=== PATIENT | male | born 1960 | race Caucasian/White ===

== ENCOUNTER 2019-08-01 04:21 | Inpatient (IN) | payer OTHER ==
[~2019-08-01] VITALS: Ht 172.7 cm; Wt 91.6 kg
[2019-08-01 04:23] VITALS: BP_SYST 149
[2019-08-01] MEDS ORDERED: NACL 0.9% 2,700 ML IV ONE (05:06)
[2019-08-01 05:18] LABS: BASOPHILS # (AUTO) 0.1 K/uL (0.0-0.2); BASOPHILS % (AUTO) 0.7 % (0.0-2.0); EOSINOPHILS # (AUTO) 0.6 K/uL (0.0-0.4); EOSINOPHILS % (AUTO) 7.9 % (0.0-4.0); HEMOGLOBIN 14.3 g/dL (14.0-18.0); LYMPHOCYTES # (AUTO) 1.3 K/uL (1.0-5.5); LYMPHOCYTES % (AUTO) 17.3 % (20.5-51.5); MEAN CORPUSCULAR HEMOGLOBIN 29 pg (27-31); MEAN CORPUSCULAR HGB CONC 34 % (32-36); MEAN CORPUSCULAR VOLUME 85 fL (79.0-98.0); MONOCYTES # (AUTO) 0.6 K/uL (0.0-1.0); MONOCYTES % (AUTO) 7.6 % (1.7-9.3); NEUTROPHILS # (AUTO) 4.9 K/uL (1.8-7.7); NEUTROPHILS % (AUTO) 66.5 % (40.0-70.0); PLATELET COUNT (AUTO) 148 K/uL (130-430); RED BLOOD CELL COUNT(AUTO) 4.93 MIL/uL (4.2-6.2); WHITE BLOOD COUNT (AUTO) 7.3 K/uL (4.8-10.8)
[2019-08-01 05:31] LABS: CALCIUM 8.6 mg/dL (8.4-11.0); CREATININE 0.85 mg/dL (0.55-1.30)
[2019-08-01 05:37] LABS: ALBUMIN 3.6 g/dL (3.4-4.8); TOTAL BILIRUBIN 0.8 mg/dL (0.0-1.0)
[2019-08-01] MEDS ORDERED: CARV25TA55 PO (06:35)
[2019-08-01] MEDS ORDERED: LIP80 PO (06:35)
[2019-08-01] MEDS ORDERED: LISI40TA4 PO (06:35)
[2019-08-01] MEDS ORDERED: VITD2000 PO (06:35)
[2019-08-01] MEDS ORDERED: ASPI-862 PO (06:35)
[2019-08-01] MEDS ORDERED: TICA60TA PO (06:35)
[2019-08-01] MEDS ORDERED: SPIR25TA6 PO (06:35)
[2019-08-01] MEDS ORDERED: ALBUTEROL SULFATE 0.083% 2.5 MG/3 ML VIAL.NEB INH ONE (06:45)
[2019-08-01] MEDS ORDERED: VANCOMYCIN HCL 1,000 MG in NS 250 ML IV ONE (06:45)
[2019-08-01] MEDS ORDERED: IPRATROPIUM BROM 0.5 MG/2.5 ML VIAL.NEB (ATROVENT) INH ONE (06:45)
[2019-08-01] MEDS ORDERED: ACETAMINOPHEN 325 MG TABLET PO PRN ×2 (07:45→09:00)
[2019-08-01] MEDS ORDERED: VANCOMYCIN HCL 1000 MG/VIAL IV ONE (07:59)
[2019-08-01] MEDS ORDERED: TICAGRELOR 60 MG PO SCH (09:00)
[2019-08-01] MEDS ORDERED: HYDROcodone/ACETAMIN 5-325 MG TAB (NORCO/ VICODIN) PO PRN (09:00)
[2019-08-01] MEDS ORDERED: ONDANSETRON HCL 4 MG/2 ML VIAL IVP PRN (09:00)
[2019-08-01] MEDS ORDERED: LORazepam 2 MG/ML VIAL IVP PRN (09:00)
[2019-08-01 09:07] LABS: BILIRUBIN,URINE NEGATIVE (NEGATIVE); CLARITY/URINE CLEAR (CLEAR); COLOR,URINE YELLOW (YELLOW); GLUCOSE,URINE NEGATIVE (NEGATIVE); KETONES,URINE NEGATIVE (NEGATIVE); LEUKOCYTE ESTERASE ,URINE NEGATIVE (NEGATIVE); NITRITE, URINE NEGATIVE (NEGATIVE); PROTEIN URINE NEGATIVE (NEGATIVE); UROBILINOGEN,URINE 0.2 (0.2-1.0)
[2019-08-01 09:09] LABS: BLOOD, URINE TRACE (NEGATIVE)
[2019-08-01 09:10] VITALS: BP_SYST 165
[2019-08-01 09:15] LABS: BACTERIA,URINE RARE /HPF (None Seen); RBC,URINE 0-3 /HPF (0-3); WBC,URINE 0-3 /HPF (0-3)
[2019-08-01] MEDS: P-EPHED SUL/LORATADINE TAB.SR.12H PO SCH ×2 (09:21→21:50)
[2019-08-01 09:31] VITALS: BP_SYST 165
[2019-08-01] MEDS: LISINOPRIL 20 MG TABLET PO SCH (10:09)
[2019-08-01] MEDS: CHOLECALCIFEROL (VITAMIN D3) 2,000 UNIT TABLET PO SCH (10:09)
[2019-08-01] MEDS: ASPIRIN 325 MG TABLET (ECOTRIN) PO SCH (10:10)
[2019-08-01] MEDS: SPIRONOLACTONE 25 MG TABLET (ALDACTONE) PO SCH (10:10)
[2019-08-01] MEDS: ATORVASTATIN 20 MG TABLET PO SCH (10:19)
[2019-08-01 12:36] VITALS: BP_SYST 145
[2019-08-01] MEDS ORDERED: IOHEXOL 350 mgI/mL, 150 ML INFUS..BTL IV ONE (12:53)
[2019-08-01] MEDS ORDERED: NORMAL SALINE 5 ML DISP.SYRIN IVF SCH (14:00)
[2019-08-01] MEDS ORDERED: AZITHROMYCIN 250 MG TABLET PO SCH (15:00)
[2019-08-01] MEDS ORDERED: cefTRIAXone 1 GM in D5W 50 ML IV SCH (16:00)
[2019-08-01] MEDS: NORMAL SALINE 5 ML DISP.SYRIN IVF SCH ×2 (16:14→21:58)
[2019-08-01] MEDS ORDERED: AZITHROMYCIN 250 MG TABLET PO ONE (16:15)
[2019-08-01] MEDS: HYDROcodone/ACETAMIN 10-325 MG TAB PO PRN ×2 (16:15→21:56)
[2019-08-01 16:27] VITALS: BP_SYST 146
[2019-08-01] MEDS: CARVEDILOL 25 MG TABLET (COREG) PO SCH (17:53)
[2019-08-01 20:00] VITALS: BP_SYST 132
[2019-08-02] VITALS: BP_SYST 135
[2019-08-02] MEDS: NORMAL SALINE 5 ML DISP.SYRIN IVF SCH (07:02)
[2019-08-02 07:46] LABS: BASOPHILS % (AUTO) 0.6 % (0.0-2.0); EOSINOPHILS # (AUTO) 0.3 K/uL (0.0-0.4); EOSINOPHILS % (AUTO) 5.3 % (0.0-4.0); HEMATOCRIT 37.7 % (36-54); HEMOGLOBIN 12.8 g/dL (14.0-18.0); LYMPHOCYTES # (AUTO) 2.1 K/uL (1.0-5.5); MEAN CORPUSCULAR HEMOGLOBIN 29 pg (27-31); MEAN CORPUSCULAR HGB CONC 34 % (32-36); MEAN CORPUSCULAR VOLUME 85 fL (79.0-98.0); MONOCYTES # (AUTO) 0.7 K/uL (0.0-1.0); MONOCYTES % (AUTO) 13.1 % (1.7-9.3); NEUTROPHILS # (AUTO) 2.4 K/uL (1.8-7.7); PLATELET COUNT (AUTO) 131 K/uL (130-430); RED BLOOD CELL COUNT(AUTO) 4.43 MIL/uL (4.2-6.2); RED CELL DISTRIBUTION WIDTH 15.2 % (9.0-15.0); WHITE BLOOD COUNT (AUTO) 5.6 K/uL (4.8-10.8)
[2019-08-02 07:51] LABS: CREATININE 0.82 mg/dL (0.55-1.30)
[2019-08-02 07:56] LABS: POTASSIUM 3.5 mmol/L (3.5-5.1)
[2019-08-02 08:16] VITALS: BP_SYST 141
[2019-08-02] MEDS: LISINOPRIL 20 MG TABLET PO SCH (08:29)
[2019-08-02] MEDS: P-EPHED SUL/LORATADINE TAB.SR.12H PO SCH (08:29)
[2019-08-02] MEDS: SPIRONOLACTONE 25 MG TABLET (ALDACTONE) PO SCH (08:30)
[2019-08-02] MEDS: CARVEDILOL 25 MG TABLET (COREG) PO SCH (08:30)
[2019-08-02] MEDS: ASPIRIN 325 MG TABLET (ECOTRIN) PO SCH (08:31)
[2019-08-02] MEDS: ATORVASTATIN 20 MG TABLET PO SCH (08:31)
[2019-08-02] MEDS: CHOLECALCIFEROL (VITAMIN D3) 2,000 UNIT TABLET PO SCH (08:31)
[2019-08-02] MEDS ORDERED: LEVOFLOXACIN 500 MG/D5W 100 ML IV SCH (09:00)
[2019-08-02] MEDS ORDERED: AZITHROMYCIN 250 MG TABLET PO SCH (09:00)
[2019-08-02] MEDS ORDERED: ALBUTEROL SULFATE 0.083% 2.5 MG/3 ML VIAL.NEB INH PRN (10:00)
[2019-08-02 12:50] VITALS: BP_SYST 128
[2019-08-02 13:46] VITALS: BP_SYST 128
[2019-08-02] MEDS ORDERED: AZIT500T2 PO (13:53)
[2019-08-02] MEDS ORDERED: AZIT500T3 PO (13:59)
[2019-08-02] MEDS ORDERED: AZIT250T PO (14:00)
== END 2019-08-02 14:50 | disposition home or self-care (01) | DRG 193 ==
LOC: SED 04:21 → STU 07:01
PROVIDERS: ADMIT Preventive Medicine Preventive Medicine/Occupational Environmental Medicine; ATTEND Preventive Medicine Preventive Medicine/Occupational Environmental Medicine
DX: J18.9 Pneumonia, unspecified organism (principal); J96.01 Acute respiratory failure with hypoxia; J44.0 Chronic obstructive pulmonary disease with (acute) lower respiratory infection; R04.2 Hemoptysis; E55.9 Vitamin D deficiency, unspecified; E78.5 Hyperlipidemia, unspecified; E83.51 Hypocalcemia; R73.9 Hyperglycemia, unspecified; F17.290 Nicotine dependence, other tobacco product, uncomplicated; I10 Essential (primary) hypertension; I25.10 Atherosclerotic heart disease of native coronary artery without angina pectoris; I25.2 Old myocardial infarction; Z95.5 Presence of coronary angioplasty implant and graft; Z79.899 Other long term (current) drug therapy; Z79.82 Long term (current) use of aspirin
CPT/HCPCS: 36415; 36600; 71045; 71275; 80048; 80053; 81000-TC; 82803-TC; 83605; 85025; 86635; 86710; 87040-TC; 87070-TC; 87205-TC; 94640; 96361; 96365; 99291; G0378; J0696; J1956; J3370; J7060; J7613; Q0144; Q9967

== ENCOUNTER 2020-08-30 20:15 | Emergency (ER) | payer OTHER ==
[~2020-08-30] VITALS: Ht 172.7 cm; Wt 91.6 kg
[~2020-08-30 20:15] MED LIST: ASPI-862 PO; AZIT250T PO; AZIT500T3 PO; CARV25TA55 PO; LIP80 PO; LISI40TA4 PO; SPIR25TA6 PO; TICA60TA PO; VITD2000 PO
[2020-08-30 20:32] VITALS: BP_SYST 155
[2020-08-30 21:11] LABS: BASOPHILS # (AUTO) 0.1 K/uL (0.0-0.2); BASOPHILS % (AUTO) 0.6 % (0.0-2.0); EOSINOPHILS # (AUTO) 0.4 K/uL (0.0-0.4); EOSINOPHILS % (AUTO) 3.9 % (0.0-4.0); HEMOGLOBIN 13.5 g/dL (14.0-18.0); LYMPHOCYTES # (AUTO) 3.2 K/uL (1.0-5.5); LYMPHOCYTES % (AUTO) 35.8 % (20.5-51.5); MEAN CORPUSCULAR HEMOGLOBIN 29 pg (27-31); MEAN CORPUSCULAR HGB CONC 34 % (32-36); MEAN CORPUSCULAR VOLUME 85 fL (79.0-98.0); MONOCYTES # (AUTO) 0.9 K/uL (0.0-1.0); MONOCYTES % (AUTO) 10.5 % (1.7-9.3); NEUTROPHILS # (AUTO) 4.4 K/uL (1.8-7.7); NEUTROPHILS % (AUTO) 49.2 % (40.0-70.0); PLATELET COUNT (AUTO) 157 K/uL (130-430); RED BLOOD CELL COUNT(AUTO) 4.69 MIL/uL (4.2-6.2); RED CELL DISTRIBUTION WIDTH 14.8 % (9.0-15.0); WHITE BLOOD COUNT (AUTO) 8.9 K/uL (4.8-10.8)
[2020-08-30 21:43] LABS: BILIRUBIN,URINE NEGATIVE (NEGATIVE); CLARITY/URINE CLEAR (CLEAR); COLOR,URINE YELLOW (YELLOW); GLUCOSE,URINE NEGATIVE (NEGATIVE); KETONES,URINE NEGATIVE (NEGATIVE); LEUKOCYTE ESTERASE ,URINE NEGATIVE (NEGATIVE); NITRITE, URINE NEGATIVE (NEGATIVE); PH,URINE 6.5 (5.0-8.0); PROTEIN URINE NEGATIVE (NEGATIVE); UROBILINOGEN,URINE 0.2 (0.2-1.0)
[2020-08-30] MEDS ORDERED: FLUORESCEIN SODIUM 1 MG OPHTHALMIC STRIP OP ONE (21:45)
[2020-08-30] MEDS ORDERED: TETRACAINE HCL/PF 0.5% OPHTHALMIC DROPS 4 ML OP ONE (21:45)
[2020-08-30 21:56] LABS: CALCIUM 9.1 mg/dL (8.4-11.0); CREATININE 1.1 mg/dL (0.55-1.30); POTASSIUM 4.1 mmol/L (3.5-5.1)
[2020-08-30 22:02] LABS: ALBUMIN 3.4 g/dL (3.4-4.8); TOTAL BILIRUBIN 0.6 mg/dL (0.0-1.0)
[2020-08-30] MEDS ORDERED: METOCLOPRAMIDE HCL 10 MG/2 ML VIAL IM ONE (22:15)
[2020-08-30] MEDS ORDERED: KETOROLAC TROMETHAMINE 60 MG/2 ML VIAL IM ONE (22:15)
[2020-08-30 23:22] VITALS: BP_SYST 147
== END 2020-08-30 23:22 | disposition home or self-care (01) ==
LOC: SED 20:15
DX: J01.90 Acute sinusitis, unspecified (principal); I10 Essential (primary) hypertension; Z79.899 Other long term (current) drug therapy; Z79.82 Long term (current) use of aspirin
CPT/HCPCS: 36415; 70450; 76376; 80053; 81003; 85025; 93005; 96372; 99285; J1885

== ENCOUNTER 2021-03-09 10:50 | Outpatient (CLI) | payer OTHER ==
[~2021-03-09 10:50] MED LIST changes: -AZIT250T PO; +LISI40TA13 PO; -LISI40TA4 PO; +ZIT250 PO
[2021-03-09 11:35] LABS: BASOPHILS # (AUTO) 0.1 K/uL (0.0-0.2); BASOPHILS % (AUTO) 0.9 % (0.0-2.0); EOSINOPHILS # (AUTO) 0.5 K/uL (0.0-0.4); EOSINOPHILS % (AUTO) 7.4 % (0.0-4.0); HEMATOCRIT 38.7 % (36-54); HEMOGLOBIN 13.3 g/dL (14.0-18.0); LYMPHOCYTES # (AUTO) 2.2 K/uL (1.0-5.5); LYMPHOCYTES % (AUTO) 36.3 % (20.5-51.5); MEAN CORPUSCULAR HEMOGLOBIN 29 pg (27-31); MEAN CORPUSCULAR HGB CONC 34 % (32-36); MEAN CORPUSCULAR VOLUME 86 fL (79.0-98.0); MONOCYTES # (AUTO) 0.5 K/uL (0.0-1.0); MONOCYTES % (AUTO) 8.3 % (1.7-9.3); NEUTROPHILS # (AUTO) 2.8 K/uL (1.8-7.7); NEUTROPHILS % (AUTO) 47.1 % (40.0-70.0); PLATELET COUNT (AUTO) 169 K/uL (130-430); RED BLOOD CELL COUNT(AUTO) 4.53 MIL/uL (4.2-6.2); RED CELL DISTRIBUTION WIDTH 14.7 % (9.0-15.0)
[2021-03-09 12:09] LABS: ALBUMIN 3.2 g/dL (3.4-4.8); CALCIUM 8.9 mg/dL (8.4-11.0); CREATININE 0.83 mg/dL (0.55-1.30); POTASSIUM 4.2 mmol/L (3.5-5.1); THYROID STIMULATING HORMONE 0.89 uIu/mL (0.34-4.82); TOTAL BILIRUBIN 1.1 mg/dL (0.0-1.0)
[2021-03-10 06:06] LABS: FREE PSA 0.24 ng/mL; PROSTATE SPECIFIC AG TOTAL 0.4 ng/mL (0.0-4.0)
== END 2021-03-09 15:47 | disposition home or self-care (01) ==
LOC: SLB 10:50
DX: Z12.5 Encounter for screening for malignant neoplasm of prostate (principal); Z12.11 Encounter for screening for malignant neoplasm of colon; E78.5 Hyperlipidemia, unspecified; I10 Essential (primary) hypertension; E55.9 Vitamin D deficiency, unspecified; R53.83 Other fatigue
CPT/HCPCS: 36415; 80053; 80061; 82272; 82306; 84153; 84443; 85025

== ENCOUNTER 2021-10-19 10:50 | Outpatient (CLI) | payer OTHER | END 2021-10-19 21:02 | disposition home or self-care (01) | LOC: SUS 10:50 | PROVIDERS: ATTEND Internal Medicine | DX: M79.89 Other specified soft tissue disorders (principal); R73.9 Hyperglycemia, unspecified | CPT/HCPCS: 36415; 83036; 93971 ==

== ENCOUNTER 2021-11-11 19:06 | Emergency (ER) | payer OTHER ==
[~2021-11-11] VITALS: Ht 172.7 cm; Wt 93.4 kg
[2021-11-11] MEDS ORDERED: ALBUTEROL SULFATE 0.083% 2.5 MG/3 ML VIAL.NEB INH ONE (19:15)
[2021-11-11] MEDS ORDERED: IPRATROPIUM BROM 0.5 MG/2.5 ML VIAL.NEB (ATROVENT) INH ONE (19:15)
[2021-11-11] MEDS ORDERED: predniSONE 20 MG TABLET PO ONE (19:15)
[2021-11-11 19:17] VITALS: BP_SYST 141
--- NOTE | 2021-11-11 19:17 | NUR ---
Patient to ER bed 08 to gown for evaluation. Side rails up.
--- NOTE | 2021-11-11 19:23 | NUR ---
DR MARQUIS AT BEDSIDE FOR EXAM
--- NOTE | 2021-11-11 19:46 | NUR ---
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 RESP EVEN AND UNLABORED, ON RA @98% SKIN W/D/I.
[2021-11-11] MEDS ORDERED: PRED20TA PO (20:14)
[2021-11-11] MEDS ORDERED: ZIT250 PO (20:14)
--- NOTE | 2021-11-11 20:17 | NUR ---
Patient given written and verbal discharge instructions and verbalizes understanding. ER MD discussed with patient the results and treatment provided. Patient in stable condition. ID arm band removed. Rx of PREDNISONE, AZITHROMYCIN given. Patient educated on pain management and to follow up with PMD. Pain Scale . Opportunity for questions provided and answered. Medication side effect fact sheet provided.
[2021-11-11 20:19] VITALS: BP_SYST 141
== END 2021-11-11 20:19 | disposition home or self-care (01) ==
LOC: SED 19:06
DX: J44.1 Chronic obstructive pulmonary disease with (acute) exacerbation (principal); I10 Essential (primary) hypertension; Z79.82 Long term (current) use of aspirin; Z79.899 Other long term (current) drug therapy
CPT/HCPCS: 71045; 94640; 99283; J7512; J7613

== ENCOUNTER 2022-08-27 12:15 | Outpatient (CLI) | payer OTHER ==
[~2022-08-27 12:15] MED LIST changes: +PRED20TA PO
[2022-08-27 12:51] LABS: BASOPHILS # (AUTO) 0.1 K/uL (0.0-0.2); BASOPHILS % (AUTO) 0.9 % (0.0-2.0); EOSINOPHILS # (AUTO) 0.3 K/uL (0.0-0.4); EOSINOPHILS % (AUTO) 4.2 % (0.0-4.0); HEMATOCRIT 43.1 % (36-54); HEMOGLOBIN 14.5 g/dL (14.0-18.0); LYMPHOCYTES # (AUTO) 2.4 K/uL (1.0-5.5); LYMPHOCYTES % (AUTO) 33.3 % (20.5-51.5); MEAN CORPUSCULAR HEMOGLOBIN 29 pg (27-31); MEAN CORPUSCULAR HGB CONC 34 % (32-36); MEAN CORPUSCULAR VOLUME 86 fL (79.0-98.0); MONOCYTES # (AUTO) 0.6 K/uL (0.0-1.0); MONOCYTES % (AUTO) 7.9 % (1.7-9.3); NEUTROPHILS # (AUTO) 3.8 K/uL (1.8-7.7); NEUTROPHILS % (AUTO) 53.7 % (40.0-70.0); PLATELET COUNT (AUTO) 165 K/uL (130-430); RED CELL DISTRIBUTION WIDTH 14.7 % (9.0-15.0); WHITE BLOOD COUNT (AUTO) 7.1 K/uL (4.8-10.8)
[2022-08-27 13:08] LABS: ALBUMIN 3.6 g/dL (3.4-4.8); CALCIUM 9.3 mg/dL (8.4-11.0); CREATININE 0.83 mg/dL (0.55-1.30); THYROID STIMULATING HORMONE 0.99 uIu/mL (0.34-4.82)
== END 2022-08-27 19:09 | disposition home or self-care (01) ==
LOC: SLB 12:15
PROVIDERS: ATTEND Internal Medicine
DX: Z12.11 Encounter for screening for malignant neoplasm of colon (principal); E78.5 Hyperlipidemia, unspecified; R53.83 Other fatigue; R73.03 Prediabetes
CPT/HCPCS: 36415; 80053; 80061; 82272; 83036; 84443; 85025

== ENCOUNTER 2022-11-19 10:59 | Outpatient (CLI) | payer OTHER | END 2022-11-19 20:47 | disposition home or self-care (01) | LOC: SRD 10:59 | PROVIDERS: ATTEND Nurse Practitioner Family | DX: R05.9 Cough, unspecified (principal) | CPT/HCPCS: 71046-TC ==

== ENCOUNTER 2024-04-02 07:26 | Outpatient (CLI) | payer OTHER ==
[~2024-04-02 07:26] MED LIST changes: +AZIT500T PO; -AZIT500T3 PO
[2024-04-02 08:56] LABS: BASOPHILS % (AUTO) 0.7 % (0.0-2.0); EOSINOPHILS # (AUTO) 0.4 K/uL (0.0-0.4); EOSINOPHILS % (AUTO) 5.5 % (0.0-4.0); HEMOGLOBIN 15.1 g/dL (14.0-18.0); LYMPHOCYTES # (AUTO) 2.2 K/uL (1.0-5.5); LYMPHOCYTES % (AUTO) 32.1 % (20.5-51.5); MEAN CORPUSCULAR HEMOGLOBIN 29 pg (27-31); MEAN CORPUSCULAR HGB CONC 34 % (32-36); MEAN CORPUSCULAR VOLUME 87 fL (79.0-98.0); MONOCYTES # (AUTO) 0.8 K/uL (0.0-1.0); MONOCYTES % (AUTO) 12.2 % (1.7-9.3); NEUTROPHILS # (AUTO) 3.4 K/uL (1.8-7.7); NEUTROPHILS % (AUTO) 49.5 % (40.0-70.0); PLATELET COUNT (AUTO) 166 K/uL (130-430); RED BLOOD CELL COUNT(AUTO) 5.18 MIL/uL (4.2-6.2); RED CELL DISTRIBUTION WIDTH 14.9 % (9.0-15.0); WHITE BLOOD COUNT (AUTO) 6.9 K/uL (4.8-10.8)
[2024-04-02 09:22] LABS: HEMOGLOBIN A1C 6.2 % (<5.7)
[2024-04-02 09:33] LABS: ALBUMIN 3.4 g/dL (3.4-4.8); CALCIUM 8.9 mg/dL (8.4-11.0); CREATININE 0.84 mg/dL (0.55-1.30); POTASSIUM 4.2 mmol/L (3.5-5.1); THYROID STIMULATING HORMONE 1.17 uIu/mL (0.34-4.82); TOTAL BILIRUBIN 1.2 mg/dL (0.0-1.0)
== END 2024-04-02 18:46 | disposition home or self-care (01) ==
LOC: SLB 07:26
PROVIDERS: ATTEND Internal Medicine
DX: Z12.11 Encounter for screening for malignant neoplasm of colon (principal); Z12.5 Encounter for screening for malignant neoplasm of prostate; R73.03 Prediabetes; I10 Essential (primary) hypertension; E78.5 Hyperlipidemia, unspecified; I42.9 Cardiomyopathy, unspecified; R53.83 Other fatigue
CPT/HCPCS: 36415; 80053; 80061; 82272; 83037; 84153; 84443; 85025